=== PATIENT | female | born 1995 | race Caucasian/White ===

== ENCOUNTER 2017-07-28 13:59 | Emergency (ER) | payer BC ==
[~2017-07-28] VITALS: Ht 167.6 cm; Wt 59.0 kg
--- NOTE | 2017-07-28 14:57 | ED Headache ---
General Chief Complaint: Head/Cervical Problems Stated Complaint: HADLEY,BLURRED VISION,DIZZY,NAUSEA Nursing Triage Note: PT ARRIVED TO ED AMBULATORY ACCOMPANIED BY FATHER. PT C/O MIGRAINE HADLEY THAT STARTED DURING CLASS TODAY AT APPROXIMATLEY 0900. PT COMPLAINS OF BLURRY VISION, NAUSEA, AND LIGHT SENSITIVITY. PT RATES PAIN OF 8/10. Source: patient Exam Limitations: no limitations History of Present Illness Date Seen by Provider: Jul 28, 2017 Time Seen by Provider: 14:57 Initial Comments 21 yo female patient presents to the ED with c/o migraine beginning while she was in class at 0900. Patient also c/o sound sensitivity, light sensitivity, nausea, and blurry vision. denies neck pain. denies taking tylenol or motrin. Timing/Duration: other (today at 0900.) Severity/Quality: pressure, throbbing Location: frontal Prior Headaches/Recent Trauma: no recent headache/trauma Modifying Factors: worse with exposure to light Allergies and Home Medications Allergies Coded Allergies: No Known Drug Allergies (Unverified , 07/28/17) Home Medications Ondansetron 8 Mg Tab.rapdis, 8 MG PO Q6H PRN for NAUSEA/VOMITING-1ST LINE Prescribed by: LETA ARRIAGA on 07/28/17 1650 Oseltamivir Phosphate 75 Mg Cap, 75 MG PO BID Prescribed by: LETA ARRIAGA on 07/28/17 1650 Patient Home Medication List Home Medication List Reviewed: Yes Constitutional: chills, No dizziness, No fever, malaise Eyes: Blurred Vision, Denies Drainage, Denies Pain, Photophobia Ears, Nose, Mouth, Throat: denies ear pain, denies ear discharge, denies nose pain, denies nose discharge, denies throat pain Respiratory: No cough, No phlegm, No short of breath Cardiovascular: no symptoms reported Gastrointestinal: No abdominal pain, No constipation, No diarrhea, loss of appetite, nausea, No vomiting Genitourinary: no symptoms reported : No (PT DENIES ) LMP: Jul 07, 2017 Musculoskeletal: no symptoms reported Skin: no symptoms reported Psychiatric/Neurological: Headache, Denies Numbness, Denies Paresthesia, Denies Tingling, Denies Weakness All Other Systems Reviewed Negative Unless Noted: Yes (Negative excepted noted.) Past Juyjhub-Mqcfyx-Ldmnfu Hx Patient Social History Alcohol Use: Denies Use Recreational Drug Use: No Smoking Status: Never a Smoker 2nd Hand Smoke Exposure: No Recent Foreign Travel: No Contact w/Someone Who Travel: No Recent Infectious Disease Expo: No Recent Hopitalizations: No Ebola Symptoms: Headache Physical Abuse: No Sexual Abuse: No Seasonal Allergies Seasonal Allergies: No Surgeries History of Surgeries: No Respiratory History of Respiratory Disorde: No Cardiovascular History of Cardiac Disorders: No Neurological History of Neurological Disord: No Genitourinary History of Genitourinary Disor: No Gastrointestinal History of Gastrointestinal Di: No Musculoskeletal History of Musculoskeletal Dis: No Endocrine History of Endocrine Disorders: No HEENT History of HEENT Disorders: No Cancer History of Cancer: No Psychosocial History of Psychiatric Problem: Yes Behavioral Health Disorders: Depression Suicide Risk Score: 0 Integumentary History of Skin or Integumenta: No Blood Transfusions History of Blood Disorders: No Adverse Reaction to a Blood Tr: No Reviewed Nursing Assessment Reviewed/Agree w Nursing PMH: Yes Family Medical History Significant Family History: No Pertinent Family Hx Physical Exam Vital Signs Vital Signs - First Documented 07/28/17 07/28/17 14:05 17:13 Temp 98.5 Pulse 78 Resp 16 B/P (MAP) 135/93 Pulse Ox 100 O2 Delivery Room Air Capillary Refill : General Appearance: WD/WN, no apparent distress HEENT: PERRL/EOMI, photophobia, TM abnormal (R) (fluid noted behind the TM without erythema.), TM abnormal (L) (fluid noted behind the TM without erythema. ), pharyngeal erythema, other (nasal mucosal swelling and rhinorrhea.) Neck: non-tender, full range of motion, supple, normal inspection Cardiovascular: normal peripheral pulses, regular rate, rhythm, no edema, no murmur Respiratory: lungs clear, normal breath sounds, no respiratory distress, no accessory muscle use Gastrointestinal: normal bowel sounds, non tender, soft, no organomegaly Back: normal inspection, no CVA tenderness Extremities: no pedal edema, normal capillary refill Psychiatric: alert, oriented x 3 Crainal Nerves: normal hearing, normal speech, PERRL Coordination/Gait: normal finger to nose, normal gait, negative Romberg's sign Motor/Sensory: no motor deficit, no sensory deficit, no pronator drift Skin: normal color, warm/dry Progress/Results/Core Measures Results/Orders Lab Results Laboratory Tests Test 07/28/17 15:30 07/28/17 16:04 Range/Units White Blood Count 4.4 4.3-11.0 10^3/uL Red Blood Count 4.26 L 4.35-5.85 10^6/uL Hemoglobin 12.0 11.5-16.0 G/DL Hematocrit 37 35-52 % Mean Corpuscular Volume 87 80-99 FL Mean Corpuscular Hemoglobin 28 25-34 PG Mean Corpuscular Hemoglobin Concent 33 32-36 G/DL Red Cell Distribution Width 13.6 10.0-14.5 % Platelet Count 361 130-400 10^3/uL Mean Platelet Volume 9.0 7.4-10.4 FL Neutrophils (%) (Auto) 62 42-75 % Lymphocytes (%) (Auto) 28 12-44 % Monocytes (%) (Auto) 8 0-12 % Eosinophils (%) (Auto) 2 0-10 % Basophils (%) (Auto) 0 0-10 % Neutrophils # (Auto) 2.7 1.8-7.8 X 10^3 Lymphocytes # (Auto) 1.3 1.0-4.0 X 10^3 Monocytes # (Auto) 0.4 0.0-1.0 X 10^3 Eosinophils # (Auto) 0.1 0.0-0.3 10^3/uL Basophils # (Auto) 0.0 0.0-0.1 10^3/uL Sodium Level 140 135-145 MMOL/L Potassium Level 3.7 3.6-5.0 MMOL/L Chloride Level 105 98-107 MMOL/L Carbon Dioxide Level 24 21-32 MMOL/L Anion Gap 11 5-14 MMOL/L Blood Urea Nitrogen 10 7-18 MG/DL Creatinine 0.82 0.60-1.30 MG/DL Estimat Glomerular Filtration Rate > 60 BUN/Creatinine Ratio 12 Glucose Level 98 70-105 MG/DL Calcium Level 9.6 8.5-10.1 MG/DL Total Bilirubin 0.4 0.1-1.0 MG/DL Aspartate Amino Transf (AST/SGOT) 18 5-34 U/L Alanine Aminotransferase (ALT/SGPT) 17 0-55 U/L Alkaline Phosphatase 41 40-136 U/L C-Reactive Protein High Sensitivity < 0.01 0.00-0.50 MG/DL Total Protein 7.7 6.4-8.2 GM/DL Albumin 4.9 H 3.2-4.5 GM/DL Serum Alcohol < 10 <10 MG/DL Urine Color YELLOW Urine Clarity CLEAR Urine pH 8 5-9 Urine Specific Roc[place]le 1.010 L 1.016-1.022 Urine Protein NEGATIVE NEGATIVE Urine Glucose (UA) NEGATIVE NEGATIVE Urine Ketones NEGATIVE NEGATIVE Urine Nitrite NEGATIVE NEGATIVE Urine Bilirubin NEGATIVE NEGATIVE Urine Urobilinogen NORMAL NORMAL MG/DL Urine Leukocyte Esterase NEGATIVE NEGATIVE Urine RBC (Auto) NEGATIVE NEGATIVE Urine RBC NONE /HPF Urine WBC NONE /HPF Urine Squamous Epithelial Cells 0-2 /HPF Urine Crystals NONE /LPF Urine Bacteria NONE /HPF Urine Casts NONE /LPF Urine Mucus NEGATIVE /LPF Urine Culture Indicated NO Urine Test NEGATIVE NEGATIVE Urine Opiates Screen NEGATIVE NEGATIVE Urine Oxycodone Screen NEGATIVE NEGATIVE Urine Methadone Screen NEGATIVE NEGATIVE Urine Propoxyphene Screen NEGATIVE NEGATIVE Urine Barbiturates Screen NEGATIVE NEGATIVE Ur Tricyclic Antidepressants Screen NEGATIVE NEGATIVE Urine Phencyclidine Screen NEGATIVE NEGATIVE Urine Amphetamines Screen NEGATIVE NEGATIVE Urine Methamphetamines Screen NEGATIVE NEGATIVE Urine Benzodiazepines Screen NEGATIVE NEGATIVE Urine Cocaine Screen NEGATIVE NEGATIVE Urine Cannabinoids Screen NEGATIVE NEGATIVE Micro Results Microbiology 07/28/17 Influenza Types A,B Antigen (LOREE) - Final, Complete My Orders Orders - LETA ARRIAGA Alcohol (07/28/17 15:02) Cbc With Automated Diff (07/28/17 15:02) Comprehensive Metabolic Panel (07/28/17 15:02) Hs C Reactive Protein (07/28/17 15:02) Drug Screen Stat (Urine) (07/28/17 15:02) Ua Culture If Indicated (07/28/17 15:02) Influenza A And B Antigens (07/28/17 15:02) Hcg,Qualitative Urine (07/28/17 15:02) Ketorolac Injection (Toradol Injection) (07/28/17 15:02) Orphenadrine Injection (Norflex Injectio (07/28/17 15:02) Saline Lock/Iv-Start (07/28/17 15:02) Ns Iv 1000 Ml (Sodium Chloride 0.9%) (07/28/17 15:02) Diphenhydramine Injection (Benadryl Inje (07/28/17 15:02) Ondansetron Injection (Zofran Injectio (07/28/17 15:15) Ns Iv 1000 Ml (Sodium Chloride 0.9%) (07/28/17 16:12) Medications Given in ED Current Medications Medications Dose Ordered Sig/Wilber Route Start Time Stop Time Status Last Admin Dose Admin Ondansetron HCl 4 mg ONCE ONCE IVP 07/28/17 15:15 07/28/17 15:16 DC 07/28/17 15:37 4 MG Sodium Chloride 1,000 ml @ 0 mls/hr Q0M ONCE IV 07/28/17 15:02 07/28/17 15:06 DC 07/28/17 15:38 1,000 MLS/HR Vital Signs/I&O Vital Sign - Last 12Hours 07/28/17 07/28/17 14:05 17:13 Temp 98.5 99.3 Pulse 78 69 Resp 16 B/P (MAP) 135/93 Pulse Ox 100 O2 Delivery Room Air Room Air Departure Communication (Admissions) Progress Notes laboratory findings discussed with the patient. patient given toradol, norflex , benadryl, zofran, and 1 L NS with resolution of symptoms. plan for dsch to home with f/u as an outpatient with her PCP. patient's symptoms are suspicious for influenza in light of a negative influenza test. patient given a rx for tamiflu and zofran. Impression Impression: Primary Impression: Influenza-like illness Additional Impression: Migraine headache Qualified Codes: G43.009 - Migraine without aura, not intractable, without status migrainosus Disposition: 01 HOME, SELF-CARE Condition: Improved Departure-Patient Inst. Decision time for Depature: 16:48 Referrals: DONITA OVERTON DO (PCP/Family) Primary Care Physician Patient Instructions: Flu, Adult (DC), Migraine Headache (DC) Add. Discharge Instructions: All discharge instructions reviewed with patient and/or family. Voiced understanding. Medications as instructed. Tylenol Extra Strength over-the- counter as directed for pain. Ibuprofen 800 mg by mouth every 8 hours as needed for pain. Drink plenty of fluids. [id number] Afrin nasal spray, saline nasal spray, decongestants, and antihistamines as instructed by the senior technical analyst for symptoms. Follow-up with your primary care provider or [facility] if no improvement in symptoms. Return to the emergency department for worsened symptoms, dizziness, changes in vision, slurred speech, changes in behavior, numbness, weakness, or any other concerns. Scripts Ondansetron (Ondansetron Odt) 8 Mg Tab.rapdis 8 MG PO Q6H Y for NAUSEA/VOMITING-1ST LINE, #10 TAB 0 Refills Prov: LETA ARRIAGA 07/28/17 Oseltamivir Phosphate (Tamiflu) 75 Mg Cap 75 MG PO BID, #10 CAP 0 Refills Prov: LETA ARRIAGA 07/28/17 Work/School Note: Work Release Form Date Seen in the Emergency Department: Jul 28, 2017 Return to Work: Jul 30, 2017 LETA ARRIAGA Jul 28, 2017 14:57
[2017-07-28] MEDS ORDERED: diphenhydrAMINE 50 MG/ML INJ (BENADRYL) IV STA (15:02)
[2017-07-28] MEDS ORDERED: KETOROLAC 30 MG/ML VIAL IVP STA (15:02)
[2017-07-28] MEDS ORDERED: ORPHENADRINE 60 MG/2 ML (NORFLEX) AMP IV STA (15:02)
[2017-07-28] MEDS ORDERED: NS IV 1000 ML 1,000 ML IV ONE ×2 (15:02→16:12)
[2017-07-28] MEDS ORDERED: ONDANSETRON 4 MG/2 ML (SDV) Z0FRAN IVP ONE (15:15)
[2017-07-28 15:56] LABS: BASOPHILS % (AUTO) 0 % (0-10); EOSINOPHILS # (AUTO) 0.1 10^3/uL (0.0-0.3); EOSINOPHILS % (AUTO) 2 % (0-10); HEMATOCRIT 37 % (35-52); LYMPHOCYTES # (AUTO) 1.3 X 10^3 (1.0-4.0); LYMPHOCYTES % (AUTO) 28 % (12-44); MEAN CORPUSCULAR HEMOGLOBIN 28 PG (25-34); MEAN CORPUSCULAR HGB CONC 33 G/DL (32-36); MEAN CORPUSCULAR VOLUME 87 FL (80-99); MONOCYTES # (AUTO) 0.4 X 10^3 (0.0-1.0); MONOCYTES % (AUTO) 8 % (0-12); NEUTROPHILS # (AUTO) 2.7 X 10^3 (1.8-7.8); NEUTROPHILS % (AUTO) 62 % (42-75); PLATELET COUNT 361 10^3/uL (130-400); RED BLOOD COUNT 4.26 10^6/uL (4.35-5.85); RED CELL DISTRIBUTION WIDTH 13.6 % (10.0-14.5); WHITE BLOOD COUNT 4.4 10^3/uL (4.3-11.0)
[2017-07-28 16:17] LABS: HCG,QUALITATIVE URINE NEGATIVE (NEGATIVE)
[2017-07-28 16:17] LABS: ALANINE AMINOTRANSFERASE 17 U/L (0-55); ALBUMIN 4.9 GM/DL (3.2-4.5); ALKALINE PHOSPHATASE 41 U/L (40-136); BILIRUBIN,TOTAL 0.4 MG/DL (0.1-1.0); BUN/CREATININE RATIO 12; CALCIUM 9.6 MG/DL (8.5-10.1); CARBON DIOXIDE 24 MMOL/L (21-32); CHLORIDE 105 MMOL/L (98-107); CREATININE SERUM 0.82 MG/DL (0.60-1.30); GFR ESTIMATED > 60; GLUCOSE 98 MG/DL (70-105); POTASSIUM 3.7 MMOL/L (3.6-5.0); SODIUM 140 MMOL/L (135-145); TOTAL PROTEIN 7.7 GM/DL (6.4-8.2)
[2017-07-28 16:18] LABS: BILIRUBIN,URINE NEGATIVE (NEGATIVE); CLARITY,URINE CLEAR; COLOR,URINE YELLOW; GLUCOSE, URINE (UA) NEGATIVE (NEGATIVE); KETONES,URINE NEGATIVE (NEGATIVE); LEUKOCYTE ESTERASE ,URINE NEGATIVE (NEGATIVE); NITRITE,URINE NEGATIVE (NEGATIVE); PH,URINE 8 (5-9); PROTEIN,URINE NEGATIVE (NEGATIVE); SQUAMOUS EPITHELIAL CELL,UR 0-2 /HPF; UROBILINOGEN,URINE NORMAL (NORMAL)
[2017-07-28 16:25] LABS: AMPHETAMINE SCREEN, URINE NEGATIVE (NEGATIVE); BARBITURATE SCREEN URINE NEGATIVE (NEGATIVE); BENZODIAZEPINES SCREEN URINE NEGATIVE (NEGATIVE); CANNABINOID SCREEN, URINE NEGATIVE (NEGATIVE); COCAINE SCREEN URINE NEGATIVE (NEGATIVE); METHADONE STAT NEGATIVE (NEGATIVE); METHAMPHETAMINE SCREEN URINE S NEGATIVE (NEGATIVE); OPIATE SCREEN URINE NEGATIVE (NEGATIVE); OXYCODONE STAT NEGATIVE (NEGATIVE); PROPOXYPHENE STAT NEGATIVE (NEGATIVE); TRICYCLIC ANTIDEPRESSANTS SCRE NEGATIVE (NEGATIVE)
[2017-07-28] MEDS ORDERED: OSLT75C PO (16:50)
[2017-07-28] MEDS ORDERED: ONDA8TAB13 PO (16:50)
== END 2017-07-28 17:13 | disposition home or self-care (01) ==
LOC: EDUNIT# 13:59 → ER 14:01
DX: J11.1 Influenza due to unidentified influenza virus with other respiratory manifestations (principal); G43.909 Migraine, unspecified, not intractable, without status migrainosus; F32.9 Major depressive disorder, single episode, unspecified
CPT/HCPCS: 36415; 80053; 80306; 80320; 81000; 84703; 85025; 86141; 87804; 96361; 96374; 96375

== ENCOUNTER → 2021-07-25 | Outpatient (CLI) | payer BC, OTHER ==
[~2021-07-25] MED LIST: ONDA8TAB13 PO; OSLT75C PO
--- NOTE | 2021-07-25 17:42 | Diagnostic Imaging Report ---
INDICATION: patient, survey. TECHNIQUE: Multiple real-time grayscale images were obtained over the gravid uterus. COMPARISON: None during this . FINDINGS: A single live intrauterine fetus is seen measuring 19 weeks 4 days by composite measurements. Fetus is in variable presentation. Placenta is posterior with no evidence of previa. heart rate is 152 bpm. Cervical length is 3.1 cm. survey shows normal-appearing kidneys and bladder. Normal-appearing stomach was seen. Intracranial ventricles appear normal. Four-chamber heart view was normal. Three-vessel cord and cord insertion were normal. Views of the spine were normal. Maternal adnexal structures were not well seen but there is no free fluid identified. Biometrical measurements are as follows: Biparietal 4.40 cm, age 19 weeks 3 days. Head circumference 16.58 cm, age 19 weeks 2 days. Abdominal circumference 14.49 cm, age 19 weeks 6 days. Femur length 3.09 cm, age 19 weeks 5 days. Sonographic estimate age: 19 weeks 4 days. Sonographic estimated date of delivery: 12/15/2021. Estimated Weight: 305 gm (+/- 45 gm). LMP percentile: 21%. heart rate: 152 beats per minute. number: 1 of 1. IMPRESSION: Single live intrauterine fetus measuring 19 weeks 4 days in size. survey is unremarkable with no detectable abnormality. Dictated on workstation # [id number]
== END ==
LOC: RAD 15:15
PROVIDERS: ATTEND Nurse Practitioner Women's Health
DX: Z34.02 Encounter for supervision of normal first pregnancy, second trimester (principal); Z3A.19 19 weeks gestation of pregnancy
CPT/HCPCS: 76805

== ENCOUNTER 2021-12-04 05:05 | Inpatient (IN) | payer BC, OTHER ==
[2021-12-04] VITALS (59 sets, daily range): BP systolic 97–133; BP diastolic 53–81
[~2021-12-04] VITALS: Ht 167.7 cm; Wt 72.0 kg
[2021-12-04 06:47] LABS: BASOPHILS % (AUTO) 0 % (0-10); EOSINOPHILS # (AUTO) 0.1 10^3/uL (0.0-0.3); EOSINOPHILS % (AUTO) 1 % (0-10); HEMATOCRIT 31 % (35-52); HEMOGLOBIN 9.7 g/dL (11.5-16.0); LYMPHOCYTES # (AUTO) 1.9 10^3/uL (1.0-4.0); LYMPHOCYTES % (AUTO) 33 % (12-44); MEAN CORPUSCULAR HEMOGLOBIN 28 pg (25-34); MEAN CORPUSCULAR HGB CONC 31 g/dL (32-36); MEAN CORPUSCULAR VOLUME 89 fL (80-99); MEAN PLATELET VOLUME 9.4 fL (9.0-12.2); MONOCYTES # (AUTO) 0.3 10^3/uL (0.0-1.0); MONOCYTES % (AUTO) 5 % (0-12); NEUTROPHILS # (AUTO) 3.4 10^3/uL (1.8-7.8); NEUTROPHILS % (AUTO) 60 % (42-75); PLATELET COUNT 226 10^3/uL (130-400); WHITE BLOOD COUNT 5.6 10^3/uL (4.3-11.0)
[2021-12-04] MEDS: D5 LR IV SOLUTION 1,000 ML IV SCH ×2 (06:56→14:46)
[2021-12-04] MEDS ORDERED: OXYTOCIN PRE-MIX DRIP 500 ML IV SCH (07:30)
[2021-12-04] MEDS ORDERED: fentaNYL 2 mcg/ml BUPIVA 0.125 100 ML ONE (11:52)
[2021-12-04] MEDS ORDERED: fentaNYL INJ 100 MCG/2 ML AMP ONE (12:59)
[2021-12-04] MEDS ORDERED: NALOXONE 0.4 MG/ML 1 ML (NARCAN) VIAL IV PRN ×3 (13:30→18:30)
[2021-12-04] MEDS ORDERED: ONDANSETRON 4 MG/2 ML (SDV) Z0FRAN IV PRN (13:30)
[2021-12-04] MEDS ORDERED: fentaNYL 2 mcg/ml BUPIVA 0.125 100 ML EPI SCH (13:30)
[2021-12-04] MEDS ORDERED: METOCLOPRAMIDE INJ 10 MG/2 ML (REGLAN) IV PRN (13:30)
[2021-12-04] MEDS ORDERED: diphenhydrAMINE 50 MG/ML INJ (BENADRYL) IV PRN (13:30)
[2021-12-04] MEDS ORDERED: LACTATED RINGERS 1,000 ML IV ONE (13:30)
[2021-12-04] MEDS ORDERED: CATHETER FLUSH 10 ML SYR IV SCH ×2 (14:00→22:00)
[2021-12-04] MEDS ORDERED: LIDOCAINE/EPI 2% 1:200,00 (XYLOCAINE) 10 ML VIAL ONE (17:29)
[2021-12-04] MEDS: OXYTOCIN PRE-MIX DRIP 500 ML IV SCH ×2 (18:20→18:47)
[2021-12-04] MEDS ORDERED: TETANUS,DIPTH,PERTUSS P/F (BOOSTRIX) 0.5 ML VIAL IM ONE (18:30)
[2021-12-04] MEDS ORDERED: DIBUCAINE 1% OINTMENT 30 GM TUBE TOP PRN (18:30)
[2021-12-04] MEDS ORDERED: BENZOCAINE/MENTHOL (DERMOPLAST) 56 ML CAN TP PRN (18:30)
[2021-12-04] MEDS ORDERED: WITCH HAZEL(TUCKS) 40 EA JAR TOP PRN (18:30)
[2021-12-04] MEDS ORDERED: MEASLES,MUMPS,RUBELLA 1 EA INJ SQ ONE (18:30)
[2021-12-04] MEDS ORDERED: HYDROcodone/APAP 5 MG/325 MG (LORTAB) TAB PO PRN (18:30)
--- NOTE | 2021-12-04 18:32 | OB Labor & Delivery Record ---
L&D History Date of Service Date of Service: Dec 04, 2021 History Expected Date of Delivery: Dec 11, 2021 Gestational Age in Weeks: 39 Complications Events: Routine care Operative Indications (Cesarea: N/A-Vaginal Delivery Intrapartal Events: None L&D Stage1 Stage One Onset of Labor - Date: Dec 04, 2021 Monitors and Tracing Monitor Mode: External Heart Rate: 130 Monitor Accelerations: Uniform Station: -1 Half-Way Variability: Average (6-10) Short Term Variability: Present Presentation: Vertex Vital Signs VS - Last 72 Hours, by Label 12/04/21 12/04/21 12/04/21 12/04/21 06:30 07:30 07:45 08:00 Temp 36.5 36.4 Pulse 83 73 63 58 Resp 18 18 18 18 B/P (MAP) 117/72 (87) 118/69 (85) 108/59 (75) Pulse Ox 100 O2 Delivery Room Air Room Air Room Air Room Air 12/04/21 12/04/21 12/04/21 12/04/21 08:15 08:30 08:45 09:00 Pulse 57 57 56 62 Resp 18 18 18 18 B/P (MAP) 106/58 (74) 112/63 (79) 107/63 (78) 120/69 (86) O2 Delivery Room Air Room Air Room Air Room Air 12/04/21 12/04/21 12/04/21 12/04/21 09:15 09:30 09:45 10:00 Temp 36.5 Pulse 65 64 60 68 Resp 18 18 18 18 B/P (MAP) 107/74 (85) 118/58 (78) 107/58 (74) 109/66 (80) O2 Delivery Room Air Room Air Room Air Room Air 12/04/21 12/04/21 12/04/21 12/04/21 10:15 10:30 10:45 11:00 Pulse 65 64 88 69 Resp 18 18 18 18 B/P (MAP) 107/59 (75) 103/55 (71) 121/66 (84) 117/66 (83) O2 Delivery Room Air Room Air Room Air Room Air 12/04/21 12/04/21 12/04/21 12/04/21 11:15 11:30 11:45 12:00 Temp 36.6 Pulse 68 83 64 71 Resp 18 18 18 18 B/P (MAP) 115/70 (85) 121/58 (79) 124/73 (90) 123/71 (88) O2 Delivery Room Air Room Air Room Air Room Air 12/04/21 12/04/21 12/04/21 12/04/21 12:15 12:30 12:40 12:45 Pulse 71 65 73 73 Resp 18 18 18 18 B/P (MAP) 116/64 (81) 122/75 (91) 129/78 (95) 125/79 (94) Pulse Ox 100 100 O2 Delivery Room Air Room Air Room Air Room Air 12/04/21 12/04/21 12/04/21 12/04/21 12:52 13:00 13:03 13:06 Pulse 71 107 72 61 Resp 18 18 18 18 B/P (MAP) 127/81 (96) 109/60 (76) 121/64 (83) 117/60 (79) Pulse Ox 100 100 100 100 O2 Delivery Room Air Room Air Room Air Room Air 12/04/21 12/04/21 12/04/21 12/04/21 13:09 13:12 13:15 13:18 Pulse 70 60 82 57 Resp 18 18 18 18 B/P (MAP) 119/68 (85) 117/66 (83) 116/72 (87) 116/64 (81) Pulse Ox 100 100 100 100 O2 Delivery Room Air Room Air Room Air Room Air 12/04/21 12/04/21 12/04/21 12/04/21 13:21 13:24 13:27 13:30 Pulse 60 57 62 Resp 18 18 18 B/P (MAP) 108/59 (75) 118/70 (86) 126/72 (90) Pulse Ox 100 100 100 O2 Delivery Room Air Room Air Room Air Room Air 12/04/21 12/04/21 12/04/21 12/04/21 13:35 13:40 13:45 14:00 Pulse 59 52 54 55 Resp 18 18 18 18 B/P (MAP) 112/53 (72) 104/55 (71) 101/56 (71) 97/56 (70) Pulse Ox 99 99 100 100 O2 Delivery Room Air Room Air Room Air Room Air 12/04/21 12/04/21 12/04/21 12/04/21 14:15 14:30 14:45 15:00 Pulse 60 57 51 57 Resp 18 18 18 18 B/P (MAP) 97/60 (72) 114/55 (74) 113/62 (79) Pulse Ox 99 99 100 100 O2 Delivery Room Air Room Air Room Air Room Air 12/04/21 12/04/21 12/04/21 12/04/21 15:15 15:30 15:45 16:00 Temp 36.4 Pulse 67 78 57 77 Resp 18 18 18 18 B/P (MAP) 127/63 (84) 121/73 (89) Pulse Ox 100 93 100 100 O2 Delivery Room Air Room Air Room Air Room Air 12/04/21 12/04/21 12/04/21 12/04/21 16:15 16:30 16:45 17:00 Pulse 65 59 58 62 Resp 18 18 18 18 B/P (MAP) 122/58 (79) 109/62 (78) 108/61 (77) Pulse Ox 100 100 100 100 O2 Delivery Room Air Room Air Room Air Room Air Rupture of Membranes Spontaneous Ruture of Membrane: No Amniotic Membrane Rupture Time: 07 Amniotic Membrane Fluid Desc.: Clear Vaginal Bleeding Description: Normal Show Induction/Anesthesia Epidural Cath Placement - Time: 1250 Progress/Notes Patient admitted for IOL. AROM performed and pitocin augmentation started. She received an epidural and progressed to complete and + 2 station. L&D Stage2 Stage Two Stage II Date: Dec 04, 2021 Monitors and Tracing Monitor Mode: External Heart Rate: 130 Monitor Accelerations: Uniform Monitor Decelerations: None Half-Way Variability: Average (6-10) Short Term Variability: Present Position: Right Occiput Anterior Presentation: Vertex Cord Descript/Complications Cord Vessel Description: 3 Vessels Delivery Type Infant Delivery Method: Spontaneous Vaginal Anterior Shoulder: Left Episiotomy/Perineal Laceration Laceraction(s)/Extensions: Yes Episiotomy Description: Perineal Extension/lac, 2nd degree Degree (describe repair) laceration repaired using 3-0 and 2-0 vicryl suture in usual fashion Condition of Infant Delivery 1 minute Comment: 8 5 minute Comment: 9 Notes Live female weight 7lbs 8 oz Condition of Condition of Infant: Living Exam: No Observed Abnormalities Resuscitation Resuscitation: N/A - Spontaneous Resp L&D Stage3 Stage Three Stage III Date: Dec 04, 2021 Pictocin Pitocin Administration mu/min: 18 Pitocin ml/hr: 18 Pitocin Administration Comment: 30 mu wide open after delivery of placenta Placenta Delivery Placenta Delivery: Spontaneous Delivery Summary Summary Estimated blood loss (mL): 350 Attending at delivery: Alana Tan DO Condition of Delivery Examined: Cervix Examined, Uterus Explored Post Hemorrhage: No Condition of Mother stable Condition of Infant (s) stable ALANA TAN DO Dec 04, 2021 18:32
--- NOTE | 2021-12-04 18:33 | History & Physical-OB ---
OB - Chief Complaint & HPI Date/Time Date of Admission: Date of Admission: Dec 04, 2021 at 06:00 Date seen by a Provider: Dec 04, 2021 Time Seen by a Provider: 07:45 Chief Complaint/History OB-Reason for Admission/Chief: Induction of Labor Hx : 1 Hx Para: 0 Expected Date of Delivery: Dec 11, 2021 Gestational Age in Weeks: 39 Gestational Age in Days: 0 Admission Nurse Assessment Rev: Yes Allergies and Home Medications Allergies Coded Allergies: No Known Drug Allergies (Unverified , 07/28/17) Patient Home Medication List Home Medication List Reviewed: Yes Ondansetron (Ondansetron Odt) 8 Mg Tab.rapdis, 8 MG PO Q6H PRN for NAUSEA/VOMITING-1ST LINE Prescribed by: LETA ARRIAGA on 07/28/171649 Oseltamivir Phosphate (Tamiflu) 75 Mg Cap, 75 MG PO BID Prescribed by: LETA ARRIAGA on 07/28/171649 OB - History Hx of Present Care: Yes Ultrasounds: Normal mid trimester US Obstetrical Complications: None Medical Complications: None Delivery History Adverse Rxn to Tranfusion: No Patient Past Medical History na Social History/Family History 2nd Hand Smoke Exposure: No Immunizations Hepatitis A: Yes Hepatitis B: Yes OB - Admission Exam Physical Exam Vitals: Vital Signs 12/04/21 12/04/21 15:45 17:00 Temp 36.4 Pulse 62 Resp 18 B/P (MAP) 108/61 (77) Pulse Ox 100 O2 Delivery Room Air HEENT: NCAT Heart: Rhythm Normal Lungs: Clear Abdomen: Gravid Extremities: Normal Reflexes: Normal Cervical Dilatation: 3cm Effacement: 75% Station: -1 Membranes: Intact Heart Rate: 130's Accelerations: Accelerations Present Decelerations: No Decelerations Short Term Variability: Present Senior Care Variability: Average (6-25) Contractions on Admission: 6-10 Minutes Apart Intensity: Mild Harrington Scoring Tool (Modified) Dilation (cm): 3-4cm (2) Effacement (%): 51-79% (2) Descent/Station: -1,0 (2) Cervix Consistency: Soft (2) Cervix Position: Anterior (2) Harrington Score: 9 Labs Laboratory Tests Test 12/04/21 06:10 Range/Units White Blood Count 5.6 4.3-11.0 10^3/uL Red Blood Count 3.48 L 3.80-5.11 10^6/uL Hemoglobin 9.7 L 11.5-16.0 g/dL Hematocrit 31 L 35-52 % Mean Corpuscular Volume 89 80-99 fL Mean Corpuscular Hemoglobin 28 25-34 pg Mean Corpuscular Hemoglobin Concent 31 L 32-36 g/dL Red Cell Distribution Width 14.6 H 10.0-14.5 % Platelet Count 226 130-400 10^3/uL Mean Platelet Volume 9.4 9.0-12.2 fL Immature Granulocyte % (Auto) 0 % Neutrophils (%) (Auto) 60 42-75 % Lymphocytes (%) (Auto) 33 12-44 % Monocytes (%) (Auto) 5 0-12 % Eosinophils (%) (Auto) 1 0-10 % Basophils (%) (Auto) 0 0-10 % Neutrophils # (Auto) 3.4 1.8-7.8 10^3/uL Lymphocytes # (Auto) 1.9 1.0-4.0 10^3/uL Monocytes # (Auto) 0.3 0.0-1.0 10^3/uL Eosinophils # (Auto) 0.1 0.0-0.3 10^3/uL Basophils # (Auto) 0.0 0.0-0.1 10^3/uL Immature Granulocyte # (Auto) 0.0 0.0-0.1 10^3/uL OB - Assessment/Plan/Diagnosis Assessment Assessment: induction of labor Admission Dx 26 yo @ 39 weeks IOL GBS neg Admission Status: Inpatient Order (span 2 midnights) Reason for Inpatient Admission: IOL at 39 weeks Plan Plan: Induction Induction Method: AROM ALANA TAN DO Dec 04, 2021 18:33
[2021-12-04] MEDS: IBUPROFEN 600 MG (MOTRIN) TAB PO SCH (19:14)
[2021-12-05] MEDS: ACETAMINOPHEN 500 MG TAB (TYLENOL) PO PRN ×3 (00:18→12:46)
[2021-12-05] MEDS: DOCUSATE SODIUM 100 MG (COLACE) CAP PO SCH ×3 (00:18→21:33)
[2021-12-05] MEDS: IBUPROFEN 600 MG (MOTRIN) TAB PO SCH ×4 (00:18→18:54)
[2021-12-05 01:00] VITALS: BP 111/55
[2021-12-05 04:33] LABS: BASOPHILS % (AUTO) 0 % (0-10); EOSINOPHILS # (AUTO) 0.1 10^3/uL (0.0-0.3); EOSINOPHILS % (AUTO) 1 % (0-10); HEMATOCRIT 24 % (35-52); HEMOGLOBIN 7.6 g/dL (11.5-16.0); LYMPHOCYTES # (AUTO) 1.7 10^3/uL (1.0-4.0); LYMPHOCYTES % (AUTO) 18 % (12-44); MEAN CORPUSCULAR HEMOGLOBIN 28 pg (25-34); MEAN CORPUSCULAR HGB CONC 32 g/dL (32-36); MEAN CORPUSCULAR VOLUME 88 fL (80-99); MEAN PLATELET VOLUME 9.5 fL (9.0-12.2); MONOCYTES # (AUTO) 0.6 10^3/uL (0.0-1.0); MONOCYTES % (AUTO) 6 % (0-12); NEUTROPHILS # (AUTO) 6.9 10^3/uL (1.8-7.8); NEUTROPHILS % (AUTO) 74 % (42-75); PLATELET COUNT 200 10^3/uL (130-400); WHITE BLOOD COUNT 9.3 10^3/uL (4.3-11.0)
[2021-12-05 04:55] VITALS: BP 116/70
--- NOTE | 2021-12-05 07:29 | Discharge Inst-Women's Service ---
Discharge Inst-Women's Serv Depart Medication/Instructions New, Converted or Re-Newed RX: Transmitted to Pharmacy Final Diagnosis PPD 2 NVD Problems Reviewed?: Yes Consults/Follow Up Additional Follow Up: Yes Orders/Referrals Dr. Tan in 6 weeks Activity Activity: Activity as Tolerated Driving Instructions: No Driving for 1 Week NO SMOKING: NO SMOKING Nothing Inside Vagina: No Douching, No [place], No Tampons Diet Discharge Diet: No Restrictions Symptoms to Report to : Bleeding Excessive, Pain Increased, Fever Over 101 Degrees F, Vaginal Bleeding Increase, Questions/Concerns For Any Problems or Questions: Contact Your Physician ALANA TAN DO Dec 05, 2021 07:29
[2021-12-05] MEDS ORDERED: IBUP-844 PO (07:31)
[2021-12-05] MEDS ORDERED: ACHD5005 PO (07:31)
[2021-12-05] MEDS ORDERED: BENZ78AE5 TP (07:31)
[2021-12-05] MEDS ORDERED: PNV1TABL67 PO (07:31)
[2021-12-05] MEDS ORDERED: FERR325T24 PO (07:31)
[2021-12-05] MEDS ORDERED: DIBU30OI TOP (07:31)
--- NOTE | 2021-12-05 07:33 | Postpartum Progress Note ---
Note Note Day # 1 Subjective: Patient is without complaints. Ambulating, voiding. Tolerating a regular diet without nausea or vomiting. Normal lochia. Pain is well controlled with oral pain medications. Objective: Physical Exam: General - Alert and oriented, no apparent distress Abdomen - Soft, appropriately tender to palpation, non-distended, fundus firm at umbilicus Extremities - no edema, negative Myles's bilaterally Assessment: PPD 1 NVD Acute blood loss anemia Plan: Routine care. Encourage breast feeding. Encourage ambulation. Ferrous sulfate supplementation. Plan for discharge tomorrow Vitals - Labs Vital Signs - I&O Vital Signs Date Time Temp Pulse Resp B/P (MAP) Pulse Ox O2 Delivery O2 Flow Rate FiO2 12/05/21 04:55 36.3 56 18 116/70 (85) 98 Room Air 12/05/21 01:00 36.3 66 18 111/55 (73) 98 Room Air 12/04/21 21:25 36.4 88 18 117/63 (81) Room Air 12/04/21 20:55 76 18 117/76 (90) Room Air 12/04/21 20:25 81 18 133/75 (94) Room Air 12/04/21 19:55 36.4 68 18 112/62 (79) Room Air 12/04/21 19:25 72 18 110/66 (81) Room Air 12/04/21 19:18 36.3 70 18 112/66 (81) Room Air 12/04/21 19:02 77 18 103/59 (74) Room Air 12/04/21 18:47 85 18 112/63 (79) Room Air 12/04/21 18:33 86 18 117/56 (76) Room Air 12/04/21 18:21 37.0 85 18 115/59 (77) Room Air 12/04/21 18:10 Room Air 12/04/21 18:00 Room Air 12/04/21 17:45 106 18 127/58 (81) Room Air 12/04/21 17:30 12/04/21 17:15 63 18 119/70 (86) 100 Room Air 12/04/21 17:00 62 18 108/61 (77) 100 Room Air 12/04/21 16:45 58 18 109/62 (78) 100 Room Air 12/04/21 16:30 59 18 122/58 (79) 100 Room Air 12/04/21 16:15 65 18 100 Room Air 12/04/21 16:00 77 18 100 Room Air 12/04/21 15:45 36.4 57 18 100 Room Air 12/04/21 15:30 78 18 121/73 (89) 93 Room Air 12/04/21 15:15 67 18 127/63 (84) 100 Room Air 12/04/21 15:00 57 18 113/62 (79) 100 Room Air 12/04/21 14:45 51 18 114/55 (74) 100 Room Air 12/04/21 14:30 57 18 97/60 (72) 99 Room Air 12/04/21 14:15 60 18 99 Room Air 12/04/21 14:00 55 18 97/56 (70) 100 Room Air 12/04/21 13:45 54 18 101/56 (71) 100 Room Air 12/04/21 13:40 52 18 104/55 (71) 99 Room Air 12/04/21 13:35 59 18 112/53 (72) 99 Room Air 12/04/21 13:30 Room Air 12/04/21 13:27 62 18 126/72 (90) 100 Room Air 12/04/21 13:24 57 18 118/70 (86) 100 Room Air 12/04/21 13:21 60 18 108/59 (75) 100 Room Air 12/04/21 13:18 57 18 116/64 (81) 100 Room Air 12/04/21 13:15 82 18 116/72 (87) 100 Room Air 12/04/21 13:12 60 18 117/66 (83) 100 Room Air 12/04/21 13:09 70 18 119/68 (85) 100 Room Air 12/04/21 13:06 61 18 117/60 (79) 100 Room Air 12/04/21 13:03 72 18 121/64 (83) 100 Room Air 12/04/21 13:00 107 18 109/60 (76) 100 Room Air 12/04/21 12:52 71 18 127/81 (96) 100 Room Air 12/04/21 12:45 73 18 125/79 (94) 100 Room Air 12/04/21 12:40 73 18 129/78 (95) 100 Room Air 8/10/22 12:30 65 18 122/75 (91) Room Air 12/04/21 12:15 71 18 116/64 (81) Room Air 12/04/21 12:00 71 18 123/71 (88) Room Air 12/04/21 11:45 36.6 64 18 124/73 (90) Room Air 12/04/21 11:30 83 18 121/58 (79) Room Air 12/04/21 11:15 68 18 115/70 (85) Room Air 12/04/21 11:00 69 18 117/66 (83) Room Air 12/04/21 10:45 88 18 121/66 (84) Room Air 12/04/21 10:30 64 18 103/55 (71) Room Air 12/04/21 10:15 65 18 107/59 (75) Room Air 12/04/21 10:00 68 18 109/66 (80) Room Air 12/04/21 09:45 60 18 107/58 (74) Room Air 12/04/21 09:30 64 18 118/58 (78) Room Air 12/04/21 09:15 36.5 65 18 107/74 (85) Room Air 12/04/21 09:00 62 18 120/69 (86) Room Air 12/04/21 08:45 56 18 107/63 (78) Room Air 12/04/21 08:30 57 18 112/63 (79) Room Air 12/04/21 08:15 57 18 106/58 (74) Room Air 12/04/21 08:00 58 18 108/59 (75) Room Air 12/04/21 07:45 63 18 118/69 (85) Room Air I & O 12/05/21 07:00 Intake Total 1000 ml Balance 1000 ml Labs Laboratory Tests 12/05/21 04:22: White Blood Count 9.3, Red Blood Count 2.73L, Hemoglobin 7.6#L, Hematocrit 24L, Mean Corpuscular Volume 88, Mean Corpuscular Hemoglobin 28, Mean Corpuscular Hemoglobin Concent 32, Red Cell Distribution Width 14.6H, Platelet Count 200, Mean Platelet Volume 9.5, Immature Granulocyte % (Auto) 0, Neutrophils (%) (Auto) 74, Lymphocytes (%) (Auto) 18, Monocytes (%) (Auto) 6, Eosinophils (%) (Auto) 1, Basophils (%) (Auto) 0, Neutrophils # (Auto) 6.9, Lymphocytes # (Auto) 1.7, Monocytes # (Auto) 0.6, Eosinophils # (Auto) 0.1, Basophils # (Auto) 0.0, Immature Granulocyte # (Auto) 0.0 ALANA TAN DO Dec 05, 2021 07:33
[2021-12-05 10:20] VITALS: BP 111/56
[2021-12-05] MEDS: FERROUS SULF 325 MG (IRON) TAB PO SCH (10:21)
[2021-12-05] MEDS: PRENATAL VITAMIN 1 EA TAB PO SCH (10:21)
[2021-12-05 12:46] VITALS: BP 111/54
--- NOTE | 2021-12-05 13:08 | Anesthesia-Regional Post-Op ---
Regional Patient Condition Mental Status: Alert, Oriented x3 Circulation: Same as Pre-Op Headache: Absent Sensation: Full Recovery Motor Block: Absent Post Op Complications Complications None Follow Up Care/Instructions Patient Instructions None needed. Anesthesia/Patient Condition Patient is doing well, no complaints, stable vital signs, no apparent adverse anesthesia problems. No complications reported per nursing. BJ AGARWAL CRNA Dec 05, 2021 13:08
[2021-12-05 16:40] VITALS: BP 120/69
[2021-12-05 18:54] VITALS: BP 121/73
[2021-12-06] MEDS: IBUPROFEN 600 MG (MOTRIN) TAB PO SCH ×2 (01:17→06:50)
[2021-12-06 01:19] VITALS: BP 126/77
[2021-12-06 06:50] VITALS: BP 121/78
[2021-12-06 08:30] VITALS: BP 114/67
--- NOTE | 2021-12-06 09:38 | Postpartum Progress Note ---
Note Note Day # 2 Subjective: Patient is without complaints. Ambulating, voiding. Tolerating a regular diet without nausea or vomiting. Normal lochia. Pain is well controlled with oral pain medications. Physical Exam: General - Alert and oriented, no apparent distress Abdomen - Soft, appropriately tender to palpation, non-distended, fundus firm at umbilicus Extremities - no edema, negative Myles's bilaterally Assessment: Post- day # 2, status post vaginal delivery. Recovering well, hemodynamically stable Acute blood loss anemia Plan: Routine care. Encourage breast feeding. Encourage ambulation. Ferrous sulfate supplementation. Plan for discharge today Vitals - Labs Vital Signs - I&O Vital Signs Date Time Temp Pulse Resp B/P (MAP) Pulse Ox O2 Delivery O2 Flow Rate FiO2 12/06/21 08:30 36.6 55 18 114/67 (83) 97 Room Air 12/06/21 06:50 36.2 66 18 121/78 (92) 97 Room Air 12/06/21 01:19 36.2 64 18 126/77 (93) 96 Room Air 12/05/21 18:54 36.5 77 18 121/73 (89) 100 Room Air 12/05/21 16:40 36.5 80 18 120/69 (86) 98 Room Air 12/05/21 12:46 36.2 72 18 111/54 (73) 98 Room Air 12/05/21 10:20 36.6 75 18 111/56 (74) 98 Room Air DAVID HERNÁNDEZ APRN Dec 06, 2021 09:38
[2021-12-06] MEDS: FERROUS SULF 325 MG (IRON) TAB PO SCH (09:54)
[2021-12-06] MEDS: DOCUSATE SODIUM 100 MG (COLACE) CAP PO SCH (09:54)
[2021-12-06] MEDS: PRENATAL VITAMIN 1 EA TAB PO SCH (09:54)
== END 2021-12-06 10:55 | disposition home or self-care (01) | DRG 806 ==
LOC: LDRP 06:00
PROVIDERS: ADMIT Obstetrics & Gynecology; ATTEND Obstetrics & Gynecology
PROC: 10E0XZZ Delivery of Products of Conception, External Approach (ICD-10-PCS; principal; 2021-12-04)
PROC: 0KQM0ZZ Repair Perineum Muscle, Open Approach (ICD-10-PCS; 2021-12-04)
PROC: 10907ZC Drainage of Amniotic Fluid, Therapeutic from Products of Conception, Via Natural or Artificial Opening (ICD-10-PCS; 2021-12-04)
DX: O70.1 Second degree perineal laceration during delivery (principal); D62 Acute posthemorrhagic anemia; Z37.0 Single live birth; Z3A.39 39 weeks gestation of pregnancy; O90.81 Anemia of the puerperium
CPT/HCPCS: 36415; 85025; 86850; 86900; 86901

== ENCOUNTER → 2022-09-11 | Outpatient (CLI) | payer BC, MEDICAID ==
[~2022-09-11] MED LIST changes: +ACHD5005 PO; +BENZ78AE5 TP; +DIBU30OI TOP; +FERR325T24 PO; +IBUP-844 PO; +PNV1TABL67 PO
== END ==
LOC: LAB 13:51
PROVIDERS: ATTEND Obstetrics & Gynecology
DX: Z36.89 Encounter for other specified antenatal screening (principal)

== ENCOUNTER → 2022-12-23 | Outpatient (CLI) | payer BC, MEDICAID ==
--- NOTE | 2022-12-23 13:01 | Diagnostic Imaging Report ---
INDICATION: anatomy survey TECHNIQUE: Multiple real-time grayscale images were obtained over the gravid uterus. COMPARISON: None FINDINGS: Single live intrauterine is in cephalic presentation. Cervix measures 4.2 cm. Placenta is posteriorly positioned and there is no previa. The amount of amniotic fluid appears visually appropriate and the EDMUND is normal at 11.97 cm. Following anatomy is seen and normal: Cerebellum, cisterna magna, cerebral ventricles, spine, stomach, kidneys, urinary bladder, three-vessel cord, right ventricular outflow tract, left ventricular outflow tract, four-chamber heart, profile, lips/nose. Biometrical measurements are as follows: Biparietal 4.94 cm, age 21 weeks 0 days. Head circumference 17.76 cm, age 20 weeks 2 days. Abdominal circumference 14.92 cm, age 20 weeks 2 days. Femur length 3.28 cm, age 20 weeks 2 days. Sonographic estimate age: 20 weeks 4 days. Sonographic estimated date of delivery: 05/08/2023. Estimated Weight: 341 gm (+/- 50 gm). LMP percentile: 51%. heart rate: 136 beats per minute. number: 1 of 1. IMPRESSION: Single live intrauterine has normal anatomy survey. Dictated by: Dictated on workstation # [id number]
== END ==
LOC: RAD 10:00
PROVIDERS: ATTEND Nurse Practitioner Women's Health
DX: Z34.82 Encounter for supervision of other normal pregnancy, second trimester (principal); Z3A.20 20 weeks gestation of pregnancy
CPT/HCPCS: 76805